=== PATIENT | male | born 1975 | race Caucasian/White ===

== ENCOUNTER → 2019-06-26 | Outpatient (CLI) | payer OTHER ==
[~2019-06-26] MED LIST: HYDR-3240 PO; HYDR2TAB29 PO; OXYC-307 PO; TRAM50TA2 PO
== END | disposition home or self-care (01) ==
LOC: CARD 12:32
PROVIDERS: ATTEND Student in an Organized Health Care Education/Training Program
DX: R55 Syncope and collapse (principal); F17.200 Nicotine dependence, unspecified, uncomplicated
CPT/HCPCS: 95819